=== PATIENT | male | born 1990 | race Two or more races ===

== ENCOUNTER 2019-12-22 04:54 | Emergency (ER) | payer SELFPAY ==
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
--- NOTE | 2019-12-22 10:42 | CR ---
PROCEDURE INFORMATION: Exam: XR Left Forearm Exam date and time: 12/22/2019 5:42 AM Age: 29 years old Clinical indication: Injury or trauma; Fall; Blunt trauma (contusions or hematomas); Arm, lower; Left TECHNIQUE: Imaging protocol: XR Left forearm. Views: 2 views. COMPARISON: No relevant prior studies available. FINDINGS: Bones/joints: No acute fracture is identified. Soft tissues: The soft tissues appear grossly unremarkable. No radiopaque foreign body is identified. IMPRESSION: No acute fracture identified. Thank you for allowing us to participate in the care of your patient. Dictated and Authenticated by: Blair Thomas MD 12/22/2019 7:19 AM Central Time ([place] & [place]) KATHRYN
== END 2019-12-22 06:40 | disposition home or self-care (01) ==
LOC: JD.ED 04:54
DX: S50.12XA Contusion of left forearm, initial encounter (principal); F51.4 Sleep terrors [night terrors]; J45.909 Unspecified asthma, uncomplicated; F17.210 Nicotine dependence, cigarettes, uncomplicated; W10.9XXA Fall (on) (from) unspecified stairs and steps, initial encounter
CPT/HCPCS: 73090-26-LT; 73090-LT; 99282; 99284-25

== ENCOUNTER 2022-08-10 17:08 | Emergency (ER) | payer SELFPAY ==
[2022-08-10] MEDS ORDERED: Morphine 4 MG/ML Syringe IVPUSH ONE (17:18)
[2022-08-10] MEDS ORDERED: Sodium Chloride 0.9% 10 ML Syringe FLUSH PRN (17:18)
[2022-08-10] MEDS ORDERED: Aspirin 81 MG Tab.Chew PO ONE (17:18)
[2022-08-10 17:28] LABS: BASOPHILS ABSOLUTE AUTO 0.04 K/mm3 (0.01-0.08); BASOPHILS PERCENT AUTO 0.6 % (0.1-1.2); EOSINOPHILS ABSOLUTE AUTO 0.62 K/mm3 (0.04-0.54); EOSINOPHILS PERCENT AUTO 9.6 (0.8-7.0); HEMATOCRIT 47.9 % (40.1-51.0); HEMOGLOBIN 17.1 gm/dl (13.7-17.5); IMMATURE GRAN ABSOLUTE AUTO 0.01 K/mm3 (0.00-0.10); IMMATURE GRAN PERCENT AUTO 0.2 % (<=1.0); LYMPHOCYTES ABSOLUTE AUTO 2.35 K/mm3 (1.32-3.57); LYMPHOCYTES PERCENT AUTO 36.4 % (21.8-53.1); MEAN CORPUSCULAR HGB CONC 35.7 g/dl (32.2-35.5); MEAN CORPUSCULAR VOLUME 81.3 fl (79.0-92.2); MEAN PLATELET VOLUME 9.3 fl (9.4-12.3); MONOCYTES ABSOLUTE AUTO 0.53 K/mm3 (0.30-0.82); MONOCYTES PERCENT AUTO 8.2 % (5.3-12.2); NEUTROPHILS ABSOLUTE AUTO 2.91 K/mm3 (1.78-5.38); PLATELET COUNT,PLT 206 K/mm3 (163-337); RED BLOOD CELL COUNT 5.89 M/mm3 (4.63-6.08); WHITE BLOOD CELL COUNT,WBC 6.46 K/mm3 (4.23-9.07)
[2022-08-10 17:53] LABS: A/G RATIO 1.3 (1-2); ALBUMIN 4.5 g/dl (3.4-5.0); ANION GAP 13.7 (5-15); BILIRUBIN TOTAL 0.5 mg/dL (0.2-1.0); CALCIUM 9.4 mg/dL (8.5-10.1); EST CRCL DRUG DOSING (CG) 108.49 mL/min; POTASSIUM,K 3.7 mEq/L (3.5-5.1)
== END 2022-08-10 19:01 | disposition home or self-care (01) ==
LOC: JD.ED 17:08
DX: R07.89 Other chest pain (principal); R09.1 Pleurisy; J45.909 Unspecified asthma, uncomplicated
CPT/HCPCS: 36415; 71045; 80053; 84484; 85025; 85379; 93005; 96374; 99285; A9270; J2270; J3490